=== PATIENT | female | born 1930 | race Caucasian/White ===

== ENCOUNTER 2017-07-11 19:55 | Emergency (ER) | payer MEDICARE ==
[~2017-07-11] VITALS: Ht 165.1 cm; Wt 56.7 kg
--- NOTE | 2017-07-11 20:58 | Diagnostic Imaging Report ---
PELVIS AP 1-2 VIEWS - 1 views HISTORY: Pain. Fall COMPARISON: None available. FINDINGS: Bones: No acute displaced fracture. Osseous alignment is within normal limits. Joints: Mild degenerative changes in bilateral hip joints. Mild degenerative changes of lower lumbar spine. Soft tissues: The soft tissues appear unremarkable. Radiopaque foreign body overlies the right hip. IMPRESSION: No acute radiographic abnormality. Signed by: Dr. Kyaw Witt M.D. on 07/11/2017 8:55 PM
--- NOTE | 2017-07-11 20:59 | Diagnostic Imaging Report ---
Lumbar Spine Radiographs: 3 views HISTORY: Pain. Fall. COMPARISON: None available. DISCUSSION: Some of the osseous structures are partially obscured by stool and bowel gas. There are five non-rib bearing lumbar vertebral bodies. Mild rotoscoliosis. No displaced fracture or compression deformity is identified. Disc Spaces: Mild multilevel disc space narrowing. Facets: Moderate to severe multilevel facet arthrosis. Severe small vessel vascular consultations. 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 Signed by: Dr. Kyaw Witt M.D. on 07/11/2017 8:56 PM
== END 2017-07-11 21:23 | disposition home or self-care (01) ==
LOC: ER 19:55
DX: Z04.3 Encounter for examination and observation following other accident (principal); M54.5 Low back pain; W01.0XXA Fall on same level from slipping, tripping and stumbling without subsequent striking against object, initial encounter; Z91.81 History of falling; I10 Essential (primary) hypertension; I48.91 Unspecified atrial fibrillation; J45.909 Unspecified asthma, uncomplicated; Z89.612 Acquired absence of left leg above knee
CPT/HCPCS: 72100; 72170; 99283